=== PATIENT | female | born 1930 | race African-American/Black ===

== ENCOUNTER 2019-03-07 07:37 | Emergency (ER) | payer OTHER ==
[~2019-03-07] VITALS: Ht 167.6 cm; Wt 52.0 kg
[2019-03-07 08:54] LABS: BASOPHILS % 0.2 % (0.0-2.0); EOSINOPHILS % 0.1 % (0.0-5.0); LYMPHOCYTES % 11.6 % (20.0-50.0); MEAN CORPUSCULAR HEMOGLOBIN 29.8 pg (28.0-32.0); MEAN CORPUSCULAR VOLUME 89.5 fL (81.0-99.0); MEAN PLATELET VOLUME 8.6 fl (7.4-10.4); MONOCYTES % 4.9 % (2.0-8.0); NEUTROPHILS % 83.2 % (40.0-76.0); PLATELET 145 x1000/uL (130-400); RED CELL DISTRIBUTION WIDTH 13.8 % (11.6-14.6)
[2019-03-07 10:00] LABS: CHLORIDE 103 mEq/L (98-107)
[2019-03-07 12:10] VITALS: BP 166/69
[2019-03-07] MEDS ORDERED: IOHEXOL-300 100 ML BOTTLE ONE (17:00)
== END 2019-03-07 12:40 | disposition home or self-care (01) ==
LOC: ER 08:42
DX: K59.00 Constipation, unspecified (principal); I10 Essential (primary) hypertension; E11.9 Type 2 diabetes mellitus without complications; R06.02 Shortness of breath; Z91.040 Latex allergy status
CPT/HCPCS: 36415; 74177; 80053; 83690; 85025; 93005; 99284; Q9967